=== PATIENT | female | born 1995 | race American Indian/Alaskan Native ===

== ENCOUNTER 2016-04-17 10:50 | Outpatient (CLI) | payer MEDICAID ==
[2016-04-17 12:08] VITALS: BP 115/68
== END 2016-04-17 12:15 | disposition home or self-care (01) ==
LOC: TRG 10:50
PROVIDERS: ATTEND Obstetrics & Gynecology
DX: Z34.90 Encounter for supervision of normal pregnancy, unspecified, unspecified trimester (principal); Z3A.00 Weeks of gestation of pregnancy not specified

== ENCOUNTER 2016-04-29 08:07 | Inpatient (IN) | payer MEDICAID ==
[2016-04-29] MEDS ORDERED: ZOFRAN IV PRN ×2 (08:36→17:44)
[2016-04-29] MEDS ORDERED: SUBLIMAZE IV PRN (08:36)
[2016-04-29] MEDS ORDERED: XYLOCAINE 2% INFILTRATI ONE (08:36)
[2016-04-29] MEDS ORDERED: ePHEDrine SULFATE IV PRN ×2 (08:36→12:15)
[2016-04-29] MEDS ORDERED: STADOL IV PRN (08:36)
[2016-04-29] MEDS ORDERED: NARCAN 0.4 MG/1 ML IV PRN (08:36)
[2016-04-29] MEDS ORDERED: NUBAIN IV PRN (08:36)
[2016-04-29] MEDS ORDERED: BRETHINE SUB-Q PRN (08:36)
[2016-04-29] MEDS ORDERED: BRETHINE IVP PRN (08:41)
[2016-04-29] MEDS ORDERED: PITOCin/NS 30 UNIT/500ML 500 ML IV SCH (08:45)
[2016-04-29] MEDS ORDERED: LACTATED RINGERS 1,000 ML IV SCH (09:00)
[2016-04-29 10:50] LABS: Hematocrit 32.2 % (30.3-42.9); Hemoglobin 10.6 gm/dl (10.1-14.3); Mean Corpuscular HGB Conc 33 % (30-34); Mean Corpuscular Hemoglobin 30 pg (28-32); Mean Corpuscular Volume 91 fl (79-97); Platelet Count 272 K/mm3 (140-440); Red Blood Count 3.53 M/mm3 (3.65-5.03); Red Cell Distribution Width 13.5 % (13.2-15.2); White Blood Count 7.8 K/mm3 (4.5-11.0)
--- NOTE | 2016-04-29 11:59 | History and Physical Report ---
History of Present Illness Date of examination: 04/29/16 Date of admission: 04/29/16 08:37 Chief complaint: contractions since yesterday History of present illness: Pt is a 20 year old -Prydeinig female DALE 04/21/16 at 41w1d who presents with contractions increasing in frequency since yesterday. She denies vaginal bleeding or leakage of fluid. She has had care at [facility] complicated by chlamydia with negative test of cure, genital herpes with no lesions or prodrome on Valtrex suppression and lapse in care from 22-32 wks. She is GBS negative. Past History Past Medical History: asthma Past Surgical History: no surgical history [employer]PERATING [employer]IAN History: chlamydia (treated with negative test of cure ), herpes (on Valtrex suppression ) Family/Genetic History: diabetes, heart disease, hypertension, cancer Social history: no significant social history, single - Obstetrical History Expected Date of Delivery: 04/21/16 Actual Gestation: 41 Week(s) 1 Day(s) : 3 Para: 1 Hx # Term Pregnancies: 1 Number of Pregnancies: 0 Spontaneous Abortions: 1 Induced : 0 Number of Living Children: 1 Medications and Allergies Allergies Allergy/AdvReac Type Severity Reaction Status Date / Time No Known Allergies Allergy Verified 04/29/16 08:12 Home Medications Medication Instructions Recorded Confirmed Last Taken Type Caplet 1 tab PO DAILY 04/29/16 04/29/16 1 Day Ago History Active Meds: Active Medications Butorphanol Tartrate (Stadol) 2 mg IV Q2H PRN PRN Reason: Pain , Severe (7-10) Fentanyl (Sublimaze) 100 mcg IV Q2H PRN PRN Reason: Labor Pain Lactated Ringer's (Lactated Ringers) 1,000 mls @ 125 mls/hr IV DIRECT LEONARD Last Admin: 04/29/16 10:26 Dose: 125 mls/hr Oxytocin/Sodium Chloride (Pitocin/Ns 20 Unit/1000ml Drip) 1,000 mls @ 125 mls/ hr IV DIRECT LEONARD Oxytocin/Sodium Chloride (Pitocin/Ns 30 Unit/500ml) 500 mls @ 4 mls/hr IV TITR LEONARD PRN Reason: Protocol Mineral Oil (Mineral Oil) 30 ml PO QHS PRN PRN Reason: Constipation Nalbuphine HCl (Nubain) 10 mg IV Q2H PRN PRN Reason: Pain, Moderate (4-6) Naloxone HCl (Narcan 0.4 Mg/1 Ml) 0.1 mg IV Q2MIN PRN PRN Reason: Res Rate </= 8 or 02 SAT < 92% Ondansetron HCl (Zofran) 4 mg IV Q8H PRN PRN Reason: Nausea And Vomiting Review of Systems All systems: negative - Vital Signs Vital signs: Vital Signs Pulse BP Pulse Ox 102 H 130/96 100 04/29/16 08:19 04/29/16 08:19 04/29/16 08:19 Temp Pulse Resp BP Pulse Ox 101 H 130/96 98 04/29/16 08:49 04/29/16 08:19 04/29/16 08:49 - Physical Exam Breasts: Positive: deferred Cardiovascular: Regular rate Lungs: Positive: Clear to auscultation Abdomen: Positive: soft (obese, gravid ) Uterus: Positive: enlarged (gravid ) Extremities: Positive: normal - Obstetrical FHR: category 2 Uterine Contraction Monitor Mode: External Uterine Contraction Pattern: Irregular Uterine Tone Measurement Phase: Resting Uterine Contraction Intensity: Moderate Results Result Diagrams: 04/29/16 08:36 Abnormal lab results 04/29/16 Range/Units 08:36 RBC 3.53 L (3.65-5.03) M/mm3 All other labs normal. Assessment and Plan A: IUP at 41w1d Latent Labor Insufficient Care Chlamydia- treated with negative test of cure Genital Herpes- no lesion or prodrome, on Valtrex suppression GBS negative Obesity P: Admit to labor and delivery. Routine intrapartum care. Closely monitor maternal and status.
[2016-04-29] MEDS ORDERED: fentaNYL-BUPIV 2 MCG/ML-0.125% 100 ML EPIDURAL ONE (12:05)
[2016-04-29] MEDS ORDERED: NARCAN 2 MG/2 ML IV PRN (12:15)
--- NOTE | 2016-04-29 12:15 | Anesthesia Consultation ---
Anesthesia Consult and Med Hx Date of service: 04/29/16 - Airway Anesthetic Teeth Evaluation: Good ROM Head & Neck: Adequate Mental/Hyoid Distance: Adequate Mallampati Class: Class II Intubation Access Assessment: Good - Pulmonary Exam CTA: Yes - Cardiac Exam Cardiac Exam: No Murmur - Pre-Operative Health Status ASA Pre-Surgery Classification: ASA2 Proposed Anesthetic Plan: Epidural - Pulmonary Hx Asthma: Yes (no inhaler) - Cardiovascular System Hx Hypertension: No - Central Nervous System Hx Seizures: No Hx Psychiatric Problems: No - Endocrine Hx Renal Disease: No Hx Hypothyroidism: No Hx Hyperthyroidism: No - Hematic Hx Anemia: No Hx Sickle Cell Disease: No - Other Systems Hx Alcohol Use: No
--- NOTE | 2016-04-29 12:18 | Event Note ---
Date: 04/29/16 Epidural just placed. SVE /-3/Intact. Begin pitocin augmentation. Continue routine intrapartum care.
[2016-04-29] MEDS ORDERED: fentaNYL-BUPIV 2 MCG/ML-0.125% 100 ML EPIDURAL SCH (13:00)
[2016-04-29] MEDS: PITOCin/NS 20 UNIT/1000ML DRIP 1,000 ML IV SCH ×2 (15:05→16:55)
--- NOTE | 2016-04-29 15:34 | Event Note ---
Date: 04/29/16 Late entry. SVE /+1. AROM- thick meconium. NICU notified. Continue routine care. Anticipate vaginal delivery.
--- NOTE | 2016-04-29 15:38 | Procedure Note ---
OB Delivery Note - Delivery Date of Delivery: 04/29/16 Surgeon: JIMMY BRAUN Estimated blood loss: 300cc - Vaginal Delivery presentation: compound Delivery position: OA Intrapartum events: meconium, decreased FHT variability Delivery induction: oxytocin Delivery augmentation: rupture of membranes Delivery monitor: external FHT, external uterine Route of delivery: Delivery placenta: spontaneous Delivery cord: 3 umbilical vessels Episiotomy: none Delivery laceration: 2nd degree Delivery repair: vicryl Anesthesia: epidural Delivery comments: Pt progressed to complete/complete/+2 and pushed to deliver a viable female via under epidural anesthesia over intact perineum. Head delivered in ALIYAH position with hand (compound presentation) quickly followed by shoulders and body. placed on maternal abdomen, cord clamped and cut and handed to NICU staff in attendance for meconium. Placenta delivered spontaneously (3VC, intact, meconium stained). Vagina and perineum explored. Bilateral periurethral lacerations hemostatic. Second degree perineal laceration repaired in a standard fashion with 2-0 Vicryl. EBL 300 mL. - A at 1 minute: 8 at 5 minutes: 9 Infant Gender: Female (2878g (6lb 6oz))
[2016-04-29] MEDS ORDERED: LANSINOH TP PRN (17:44)
[2016-04-29] MEDS ORDERED: SODIUM CHLORIDE FLUSH SYRINGE 10 ML IV NR (17:44)
[2016-04-29] MEDS ORDERED: PHENERGAN PR PRN (17:44)
[2016-04-29] MEDS ORDERED: PITOCin/NS 20 UNIT/1000ML DRIP 1,000 ML IV SCH (17:44)
[2016-04-29] MEDS ORDERED: TYLENOL PO PRN (17:44)
[2016-04-29] MEDS ORDERED: TUCKS PAD TP PRN (17:44)
[2016-04-29] MEDS ORDERED: BENADRYL PO PRN (17:44)
[2016-04-29] MEDS ORDERED: PHENERGAN PO PRN (17:44)
[2016-04-29] MEDS ORDERED: DULCOLAX PR PRN (17:44)
[2016-04-29] MEDS ORDERED: MILK OF MAGNESIA PO PRN (17:44)
[2016-04-29] MEDS ORDERED: DERMOPLAST TP PRN (17:44)
[2016-04-29] MEDS: MOTRIN PO SCH (17:56)
[2016-04-29] MEDS: NORCO 5/325 PO PRN (17:57)
[2016-04-29] MEDS ORDERED: MINERAL OIL PO PRN (22:00)
[2016-04-30] MEDS: MOTRIN PO SCH ×4 (00:55→18:25)
[2016-04-30] MEDS: NORCO 5/325 PO PRN ×3 (00:56→22:11)
--- NOTE | 2016-04-30 08:11 | Progress Note ---
Assessment and Plan A/P PPD#1 breast and bottle feeding no complaints continue routine PP care bonding girl rh + no rhogam indicated Subjective - Subjective Date of service: 04/30/16 Principal diagnosis: PPD#1 Patient reports: appetite normal, voiding normally, pain well controlled, flatus , ambulating normally [place]: doing well, nursing well, bottle feeding Objective - Vital Signs Latest vital signs: Vital Signs Temp Pulse Pulse Resp BP BP Pulse Ox 04/30/16 06:35 18 04/30/16 01:55 18 04/30/16 01:15 97.9 F 72 20 98/65 04/30/16 00:56 18 04/30/16 00:55 18 04/29/16 20:20 98.6 F 70 20 117/62 04/29/16 18:56 18 04/29/16 17:10 99.3 F 81 20 122/71 04/29/16 16:32 75 104/56 04/29/16 16:17 68 108/55 04/29/16 16:02 82 107/57 04/29/16 15:47 78 113/58 04/29/16 15:34 90 114/78 04/29/16 15:24 88 100 04/29/16 15:19 83 100 04/29/16 15:14 83 100 04/29/16 15:09 78 100 04/29/16 15:04 105 H 100 04/29/16 14:59 69 100 04/29/16 14:54 84 100 04/29/16 14:49 64 100 04/29/16 14:44 62 100 04/29/16 14:39 66 117/71 100 04/29/16 14:34 65 100 04/29/16 14:29 73 100 04/29/16 14:24 75 100 04/29/16 14:19 91 H 100 04/29/16 14:14 85 100 04/29/16 14:12 83 95/50 04/29/16 14:10 39 L 90 04/29/16 14:09 34 L 86 04/29/16 14:04 95 H 100 04/29/16 13:59 88 100 04/29/16 13:54 85 100 04/29/16 13:49 65 100 04/29/16 13:45 85 97/49 04/29/16 13:44 73 86 04/29/16 13:40 64 80 L 04/29/16 13:39 93 H 99 04/29/16 13:34 72 100 04/29/16 13:29 71 100 04/29/16 13:24 79 99 04/29/16 13:19 69 100 04/29/16 13:14 69 100 04/29/16 13:10 77 122/75 04/29/16 13:09 78 100 04/29/16 13:04 72 99 04/29/16 13:00 97.8 F 18 04/29/16 12:59 67 100 04/29/16 12:54 74 100 04/29/16 12:49 70 100 04/29/16 12:44 67 100 04/29/16 12:39 61 99 04/29/16 12:37 151 H 104/61 04/29/16 12:34 67 100 04/29/16 12:32 18 04/29/16 12:31 67 110/64 04/29/16 12:29 69 100 04/29/16 12:24 60 100 04/29/16 12:19 79 100 04/29/16 12:15 65 111/59 04/29/16 12:14 75 108/63 100 04/29/16 12:11 73 93 04/29/16 12:09 98 H 100 04/29/16 12:05 114 H 152/103 04/29/16 11:55 96 H 120/64 04/29/16 09:40 98.2 F 78 16 121/78 98 04/29/16 08:49 101 H 98 04/29/16 08:44 90 99 04/29/16 08:39 86 97 04/29/16 08:34 95 H 98 04/29/16 08:29 90 99 04/29/16 08:28 77 94 04/29/16 08:24 81 99 04/29/16 08:19 102 H 130/96 100 Intake and Output 04/29/16 04/30/16 04/30/16 22:59 06:59 14:59 Intake Total 850 1290 Output Total 0 800 Balance 850 490 Intake: IV 250 1050 PITOCin/NS 20 UNIT/1000ML 250 1050 DRIP 1,000 ML @ 250 mls/ hr IV TITR LEONARD Rx#: [id number] Oral 600 240 Output: Urine 0 800 Void 0 800 Other: Total, Intake Amount 240 120 Total, Output Amount 0 500 Estimated Blood Loss 300 - Exam Breasts: Present: normal Cardiovascular: Present: Regular rate, Normal S1, Normal S2 Lungs: Present: Clear to auscultation, Normal air movement Abdomen: Present: normal appearance, soft, normal bowel sounds. Absent: distention, tenderness Vulva: both: normal Uterus: Present: normal, firm, fundal height below umbilicus (3cm). Absent: bogginess, tenderness Extremities: Present: normal Deep Tendon Reflex Grade: Normal +2 Incision: Present: normal - Labs Labs: Abnormal lab results 04/29/16 Range/Units 08:36 RBC 3.53 L (3.65-5.03) M/mm3
[2016-04-30 08:40] LABS: Hematocrit 27.5 % (30.3-42.9); Hemoglobin 9.4 gm/dl (10.1-14.3)
--- NOTE | 2016-04-30 13:37 | Progress Note ---
Subjective Date of service: 04/30/16 (No c/o LOERA, N/V at this time. No residual numbness noted per pt. Pt able to ambulate well without negative sequelae. Pt c/o lower back pain at site of epidural, no acute issues noted.) Principal diagnosis: PPD#1 Objective - Constitutional Vitals: Vital Signs - 12hr 04/30/16 04/30/16 04/30/16 01:55 06:35 07:57 Temperature 98.0 F Pulse Rate [ 76 Right Radial] Respiratory 18 18 20 Rate Blood Pressure 100/70 [Left Arm] Blood Pressure 90/60 [Right Arm] - Labs CBC & Chem 7: 04/30/16 07:37 Labs: Abnormal lab results 04/30/16 Range/Units 07:37 Hgb 9.4 L (10.1-14.3) gm/dl Hct 27.5 L (30.3-42.9) %
[2016-04-30] MEDS: FEOSOL PO SCH ×3 (15:05→22:30)
[2016-04-30] MEDS: PRENATAL VITAMIN PO SCH (15:05)
[2016-04-30] MEDS ORDERED: M-M-R II VACCINE SUB-Q ONE (15:39)
[2016-04-30] MEDS ORDERED: BOOSTRIX IM ONE (15:39)
[2016-05-01] MEDS: MOTRIN PO SCH ×2 (07:15→12:11)
--- NOTE | 2016-05-01 08:40 | Progress Note ---
Assessment and Plan - Patient Problems (1) Post-term Current Visit: Yes Status: Acute Plan to address problem: Patient doing well Discharge home Subjective - Subjective Date of service: 05/01/16 Interval history: Patient reports intermittent lower back pain. She states that her lochia is decreasing. She is tolerating a regular diet Patient reports: appetite normal, voiding normally, pain well controlled [place]: doing well Objective - Vital Signs Latest vital signs: Vital Signs Temp Pulse Resp BP BP 05/01/16 07:15 18 04/30/16 23:40 98.3 F 67 18 109/57 04/30/16 22:11 18 04/30/16 16:35 98.1 F 90 20 112/62 Intake and Output 04/30/16 05/01/16 05/01/16 22:59 06:59 14:59 Intake Total 480 240 Balance 480 240 Intake: Oral 240 Intake, Free Water 240 240 Other: Total, Intake Amount 240 # Voids Void 1 1 - Exam Abdomen: Present: normal appearance, soft Uterus: Present: normal, firm - Labs Labs: Abnormal lab results 04/30/16 Range/Units 07:37 Hgb 9.4 L (10.1-14.3) gm/dl Hct 27.5 L (30.3-42.9) %
--- NOTE | 2016-05-01 08:43 | Discharge Summary ---
Providers - Providers Date of Admission: 04/29/16 08:37 Date of discharge: 05/01/16 Attending physician: JIMMY BRAUN 04/29/16 17:44 Consult to Port Surveyor [CONS] Routine Reason For Exam: assistance with , SNS Primary care physician: JIMMY BRAUN Hospitalization Reason for admission: active labor, IUP at term Delivery: Discharge diagnosis: IUP at term delivered [place] baby: female Hospital course: Patient admitted for postterm . The patient had a successful vaginal delivery. course was uneventful. Condition at discharge: Good Disposition: DISCHARGED TO HOME OR SELFCARE - Discharge Diagnoses (1) Post-term Status: Acute Plan - Discharge Medications Prescriptions: Ferrous Sulfate [Feosol 325 MG tab] 325 mg PO BID #60 tablet HYDROcodone/APAP 5-325 [[place] 5/325] 1 each PO Q6HR PRN #30 tablet PRN Reason: Pain Ibuprofen [Motrin] 800 mg PO Q8HR PRN #30 tablet PRN Reason: Pain Vit-Fe Fumar-FA [ Vitamin] 1 tab PO QDAY #30 tablet oxyCODONE /ACETAMINOPHEN [Percocet 5/325] 1 tab PO Q6HR PRN #30 tablet PRN Reason: Pain - Provider Discharge Summary Activity: no sex for 6 weeks, no heavy lifting 4 weeks, no strenuous exercise Diet: routine Instructions: routine Additional instructions: [] Smoking cessation referral if applicable(refer to patient education folder for contact #) [] Refer to [employer] Booklet Call your doctor immediately for: * Fever > 100.5 * Heavy vaginal bleeding ( >1 pad per hour) * Severe persistent headache * Shortness of breath * Reddened, hot, painful area to leg or breast * Drainage or odor from incision. * Keep incision clean and dry at all times and follow doctor's instructions regarding bathing/showering Follow-up 4 weeks
[2016-05-01] MEDS: FEOSOL PO SCH (10:09)
[2016-05-01] MEDS: PRENATAL VITAMIN PO SCH (10:09)
[2016-05-01] MEDS: NORCO 5/325 PO PRN (12:11)
[2016-05-01 12:50] VITALS: BP 104/60
== END 2016-05-01 13:35 | disposition home or self-care (01) | DRG 774 ==
LOC: TRG 08:07 → LD 08:37 → OB 17:05
PROVIDERS: ADMIT Obstetrics & Gynecology; ATTEND Obstetrics & Gynecology
PROC: 0KQM0ZZ Repair Perineum Muscle, Open Approach (ICD-10-PCS; principal; 2016-04-29)
PROC: 10E0XZZ Delivery of Products of Conception, External Approach (ICD-10-PCS; 2016-04-29)
PROC: 3E033VJ Introduction of Other Hormone into Peripheral Vein, Percutaneous Approach (ICD-10-PCS; 2016-04-29)
PROC: 00HU33Z Insertion of Infusion Device into Spinal Canal, Percutaneous Approach (ICD-10-PCS; 2016-04-29)
PROC: 3E0R3BZ Introduction of Anesthetic Agent into Spinal Canal, Percutaneous Approach (ICD-10-PCS; 2016-04-29)
DX: O77.0 Labor and delivery complicated by meconium in amniotic fluid (principal); O98.313 Other infections with a predominantly sexual mode of transmission complicating pregnancy, third trimester; O48.0 Post-term pregnancy; O99.214 Obesity complicating childbirth; A60.00 Herpesviral infection of urogenital system, unspecified; O70.1 Second degree perineal laceration during delivery; O09.33 Supervision of pregnancy with insufficient antenatal care, third trimester; Z37.0 Single live birth; Z3A.41 41 weeks gestation of pregnancy; Z83.3 Family history of diabetes mellitus; Z82.49 Family history of ischemic heart disease and other diseases of the circulatory system; Z80.9 Family history of malignant neoplasm, unspecified
CPT/HCPCS: 36415; 85014; 85018; 85027; 86850; 86900; 86901; A6250; J2590; J7120